=== PATIENT | male | born 1950 | race Caucasian/White ===

== ENCOUNTER 2019-07-14 12:45 | Emergency (ER) | payer MEDICARE, BC ==
[~2019-07-14] VITALS: Ht 170.2 cm; Wt 86.0 kg
--- NOTE | 2019-07-14 13:23 | NUR ---
no step offs noted upon palpation, denies LOC, thinners. localized tenderness at abrasion sites at left flank right ankle and left shoulder.
[2019-07-14] MEDS ORDERED: HYDR-4383 PO (14:01)
[2019-07-14] MEDS ORDERED: ONDA4TAB6 PO (14:01)
[2019-07-14 14:12] VITALS: BP 121/73
== END 2019-07-14 14:14 | disposition home or self-care (01) ==
LOC: ER 12:45
DX: S82.891A Other fracture of right lower leg, initial encounter for closed fracture (principal); S40.212A Abrasion of left shoulder, initial encounter; X50.1XXA Overexertion from prolonged static or awkward postures, initial encounter; Y93.89 Activity, other specified; Y92.89 Other specified places as the place of occurrence of the external cause; Y99.9 Unspecified external cause status
CPT/HCPCS: 73610; 99283